=== PATIENT | male | born 1980 | race Caucasian/White ===

== ENCOUNTER 2020-04-11 10:34 | Inpatient (IN) | payer MEDICAID ==
[~2020-04-11] VITALS: Ht 175.3 cm; Wt 107.2 kg
[2020-04-11] MEDS: LORazepam 2 MG TABLET PO PRN (14:00)
[2020-04-11] MEDS: HALOPERIDOL 5 MG TABLET PO PRN (14:00)
[2020-04-11] MEDS ORDERED: INFLUENZA VIRUS VACCINE QVS 2020-21 (6MO+)/PF 60 MCG/0.5 ML SYRINGE IM ONE (14:15)
[2020-04-11 14:31] VITALS: BP 131/81
[2020-04-11 14:32] VITALS: BP 131/81
[2020-04-11 16:22] VITALS: BP 123/76
[2020-04-11] MEDS: ZOLPIDEM TARTRATE 10 MG TABLET PO PRN (20:24)
[2020-04-12 04:05] VITALS: BP 124/72
[2020-04-12] MEDS: LORazepam 2 MG TABLET PO PRN ×2 (07:04→15:51)
[2020-04-12] MEDS: HALOPERIDOL 5 MG TABLET PO PRN ×2 (07:04→15:51)
[2020-04-12 07:24] LABS: BASOPHILS % (AUTO) 0.5 % (0.0-2.0); EOSINOPHILS % (AUTO) 2.4 % (1.0-6.0); HEMATOCRIT 39.7 % (41-53); HEMOGLOBIN 13.3 g/dL (13.5-17.5); LYMPHOCYTES # (AUTO) 0.9 K/uL (1.0-4.8); LYMPHOCYTES % (AUTO) 17.3 % (22.0-44.0); MEAN CORPUSCULAR HEMOGLOBIN 29.7 pg (26.0-34.0); MEAN CORPUSCULAR HGB CONC 33.4 G/dL (31.0-37.0); MEAN CORPUSCULAR VOLUME 89 fL (80-100); MONOCYTES # (AUTO) 0.5 K/uL (0.1-1.0); MONOCYTES % (AUTO) 8.7 % (2.0-9.0); NEUTROPHILS # (AUTO) 3.9 K/uL (1.8-7.7); NEUTROPHILS % (AUTO) 71.1 % (40.0-70.0); PLATELET COUNT (AUTO) 245 K/uL (150-450); RED BLOOD CELL COUNT(AUTO) 4.47 MIL/uL (4.50-5.90); RED CELL DISTRIBUTION WIDTH 14.1 % (11.5-14.5)
[2020-04-12 07:38] LABS: HEMOGLOBIN A1C 5.5 % (3.8-5.6)
[2020-04-12 07:47] LABS: ALANINE AMINOTRANSFERASE 68 U/L (12-78); ALBUMIN 3.4 g/dL (3.4-5.0); ALKALINE PHOSPHATASE 75 U/L (46-116); ANION GAP 8 mmol/L (8-16); ASPARTATE AMINOTRANSFERASE 34 U/L (15-37); BILIRUBIN,TOTAL 0.3 mg/dL (0.1-1.0); CALCIUM, TOTAL 8.8 mg/dL (8.8-10.5); CARBON DIOXIDE 26 mmol/L (22-29); CHLORIDE 105 mmol/L (98-107); CHOL/HDL RATIO 3.5 (4.2-7.3); CHOLESTEROL 154 mg/dL (131-200); CREATININE 0.73 mg/dL (0.60-1.30); FREE T4 (FREE THYROXINE) 1.23 ng/dL (0.76-1.46); GLOMERULAR FILTR. RATE CALC > 60 mL/min (>60); GLUCOSE,RANDOM 89 mg/dL (70-110); HDL CHOLESTEROL 44 mg/dL (40-60); LDL CHOL (CALC.) 90 mg/dL (0-130); POTASSIUM 4.5 mmol/L (3.5-5.1); SODIUM SERUM 139 mmol/L (136-145); TOTAL PROTEIN, SERUM 6.6 g/dL (6.4-8.2); TRIGLYCERIDES 101 mg/dL (15-150); UREA NITROGEN, BLOOD 13 mg/dL (7-18)
[2020-04-12 08:10] VITALS: BP 109/65
[2020-04-12 16:40] VITALS: BP 115/60
[2020-04-12] MEDS: ZOLPIDEM TARTRATE 10 MG TABLET PO PRN (21:32)
[2020-04-13 04:55] VITALS: BP 118/63
[2020-04-13 08:10] VITALS: BP 109/68
[2020-04-13] MEDS: LORazepam 2 MG TABLET PO PRN ×3 (08:31→19:02)
[2020-04-13] MEDS: HALOPERIDOL 5 MG TABLET PO PRN ×3 (08:31→19:02)
[2020-04-14 05:49] VITALS: BP 117/74
[2020-04-14] MEDS: CITALOPRAM HYDROBROMIDE 20 MG TABLET PO SCH (09:08)
[2020-04-14] MEDS: MUPIROCIN CALCIUM 2% 22 GM OINTMENT NASAL SCH ×2 (09:09→17:23)
[2020-04-14] MEDS: HALOPERIDOL 5 MG TABLET PO PRN (13:00)
[2020-04-14] MEDS: LORazepam 2 MG TABLET PO PRN (13:00)
[2020-04-14 16:23] VITALS: BP 104/68
[2020-04-15] MEDS: CITALOPRAM HYDROBROMIDE 20 MG TABLET PO SCH (09:17)
[2020-04-15] MEDS: MUPIROCIN CALCIUM 2% 22 GM OINTMENT NASAL SCH ×2 (09:17→16:45)
[2020-04-15] MEDS: HALOPERIDOL 5 MG TABLET PO PRN ×2 (10:15→15:36)
[2020-04-15] MEDS: LORazepam 2 MG TABLET PO PRN ×2 (10:15→15:36)
[2020-04-15 20:00] VITALS: BP 100/73
[2020-04-16] MEDS: ZOLPIDEM TARTRATE 10 MG TABLET PO PRN ×2 (00:49→22:20)
[2020-04-16 08:10] VITALS: BP 128/76
[2020-04-16] MEDS: CITALOPRAM HYDROBROMIDE 20 MG TABLET PO SCH (08:53)
[2020-04-16] MEDS: MUPIROCIN CALCIUM 2% 22 GM OINTMENT NASAL SCH ×2 (08:53→16:04)
[2020-04-16] MEDS: HALOPERIDOL 5 MG TABLET PO PRN ×3 (09:14→21:46)
[2020-04-16] MEDS: LORazepam 2 MG TABLET PO PRN ×3 (09:14→21:46)
[2020-04-16 16:24] VITALS: BP 103/59
[2020-04-17] MEDS: CITALOPRAM HYDROBROMIDE 20 MG TABLET PO SCH (08:58)
[2020-04-17] MEDS: MUPIROCIN CALCIUM 2% 22 GM OINTMENT NASAL SCH ×2 (09:07→17:14)
[2020-04-17 12:44] VITALS: BP 100/51
[2020-04-17] MEDS: HALOPERIDOL 5 MG TABLET PO PRN (14:00)
[2020-04-17] MEDS: LORazepam 2 MG TABLET PO PRN (14:00)
[2020-04-17 16:31] VITALS: BP 107/60
[2020-04-18 02:00] VITALS: BP 118/65
[2020-04-18 08:33] VITALS: BP 108/60
[2020-04-18] MEDS: CITALOPRAM HYDROBROMIDE 20 MG TABLET PO SCH (09:08)
[2020-04-18] MEDS: LORazepam 2 MG TABLET PO PRN ×2 (09:20→16:05)
[2020-04-18] MEDS: HALOPERIDOL 5 MG TABLET PO PRN ×2 (09:21→16:05)
[2020-04-18] MEDS: MUPIROCIN CALCIUM 2% 22 GM OINTMENT NASAL SCH ×2 (09:32→16:05)
[2020-04-18 16:16] VITALS: BP 102/64
[2020-04-18 20:37] LABS: COVID AG,FIA SOURCE NASOPHARYNGEAL
[2020-04-18] MEDS ORDERED: MAGNESIUM HYDROXIDE SUSPENSION 30 ML UDCUP PO PRN (22:00)
[2020-04-18] MEDS ORDERED: BENZOCAINE/MENTHOL LOZENGE PO PRN (22:00)
[2020-04-18] MEDS ORDERED: LOPERAMIDE HCL 2 MG CAPSULE PO PRN (22:00)
[2020-04-18] MEDS ORDERED: ONDANSETRON HCL 4 MG TABLET PO PRN (22:00)
[2020-04-18] MEDS ORDERED: CloNIDine HCL 0.1 MG TABLET PO PRN (22:00)
[2020-04-18] MEDS ORDERED: BACITRACIN 28 GM OINTMENT TP PRN (22:00)
[2020-04-18] MEDS ORDERED: IBUPROFEN 600 MG TABLET PO PRN (22:00)
[2020-04-18] MEDS ORDERED: MAG HYDROX/AL HYDROX/SIMETH ES 30 ML SUSPENSION UDCUP PO PRN (22:00)
[2020-04-18] MEDS ORDERED: ALBUTEROL SULFATE HFA 90 MCG/PUFF 8 GM INHALER IH PRN (22:00)
[2020-04-18] MEDS ORDERED: PETROLATUM,WHITE 28 GM JELLY TP PRN (22:00)
[2020-04-18] MEDS ORDERED: ACETAMINOPHEN 325 MG TABLET PO PRN (22:00)
[2020-04-19 08:14] VITALS: BP 137/73
[2020-04-19] MEDS: LORazepam 2 MG TABLET PO PRN ×2 (08:33→16:28)
[2020-04-19] MEDS: HALOPERIDOL 5 MG TABLET PO PRN ×2 (08:33→16:28)
[2020-04-19] MEDS: OMEPRAZOLE 20 MG CAPSULE PO SCH (10:00)
[2020-04-19] MEDS: DOCUSATE SODIUM 100 MG CAPSULE PO SCH (10:00)
[2020-04-19] MEDS: MUPIROCIN CALCIUM 2% 22 GM OINTMENT NASAL SCH ×2 (10:00→16:29)
[2020-04-19] MEDS: CITALOPRAM HYDROBROMIDE 20 MG TABLET PO SCH (10:01)
[2020-04-19 16:27] VITALS: BP 162/92
[2020-04-19 17:00] VITALS: BP 140/88
[2020-04-20 04:06] VITALS: BP 136/81
[2020-04-20] MEDS: LORazepam 2 MG TABLET PO PRN ×2 (08:15→14:25)
[2020-04-20] MEDS: CITALOPRAM HYDROBROMIDE 20 MG TABLET PO SCH (08:15)
[2020-04-20] MEDS: DOCUSATE SODIUM 100 MG CAPSULE PO SCH (08:15)
[2020-04-20] MEDS: OMEPRAZOLE 20 MG CAPSULE PO SCH (08:15)
[2020-04-20] MEDS: MUPIROCIN CALCIUM 2% 22 GM OINTMENT NASAL SCH ×2 (08:18→16:09)
[2020-04-20 08:46] VITALS: BP 130/80
[2020-04-20] MEDS: HALOPERIDOL 5 MG TABLET PO PRN (14:24)
[2020-04-20 16:15] VITALS: BP 147/90
[2020-04-21 08:22] VITALS: BP 111/66
[2020-04-21] MEDS: OMEPRAZOLE 20 MG CAPSULE PO SCH (08:42)
[2020-04-21] MEDS: HALOPERIDOL 5 MG TABLET PO PRN (08:42)
[2020-04-21] MEDS: DOCUSATE SODIUM 100 MG CAPSULE PO SCH (08:42)
[2020-04-21] MEDS: CITALOPRAM HYDROBROMIDE 20 MG TABLET PO SCH (08:42)
[2020-04-21] MEDS: LORazepam 2 MG TABLET PO PRN (08:42)
[2020-04-21] MEDS ORDERED: CITA-144 PO (10:17)
[2020-04-21] MEDS ORDERED: OMEP20 PO (10:17)
[2020-04-21] MEDS ORDERED: DOCU-275 PO (10:17)
== END 2020-04-21 11:45 | disposition home or self-care (01) | DRG 750 ==
LOC: B3A 13:05
PROVIDERS: ADMIT Psychiatry & Neurology Psychiatry; ATTEND Psychiatry & Neurology Psychiatry
DX: F25.9 Schizoaffective disorder, unspecified (principal); R45.851 Suicidal ideations; Z59.0 Homelessness; D64.9 Anemia, unspecified; F41.9 Anxiety disorder, unspecified; K59.00 Constipation, unspecified; G47.00 Insomnia, unspecified; F17.200 Nicotine dependence, unspecified, uncomplicated; F19.10 Other psychoactive substance abuse, uncomplicated; Z20.828 Contact with and (suspected) exposure to other viral communicable diseases
CPT/HCPCS: 83036; 84436; 84439; 84443; 87081; 87426

== ENCOUNTER 2020-07-16 08:41 | Inpatient (IN) | payer MEDICAID ==
[~2020-07-16] VITALS: Ht 172.7 cm; Wt 111.1 kg
[~2020-07-16 08:41] MED LIST: CITA-144 PO
[2020-07-16] MEDS ORDERED: ZOLPIDEM TARTRATE 10 MG TABLET PO PRN ×2 (09:15→09:30)
[2020-07-16] MEDS ORDERED: HALOPERIDOL 5 MG TABLET PO PRN (09:15)
[2020-07-16] MEDS ORDERED: LORazepam 2 MG TABLET PO PRN (09:15)
[2020-07-16] MEDS ORDERED: HydrOXYzine PAMOATE 50 MG CAPSULE PO PRN (09:30)
[2020-07-16] MEDS ORDERED: GuaiFENesin/D-METHORPHAN [SUGAR-FREE] 200-20MG/10 ML SYRUP UDCUP PO PRN (09:30)
[2020-07-16] MEDS ORDERED: MAGNESIUM HYDROXIDE SUSPENSION 30 ML UDCUP PO PRN (09:30)
[2020-07-16] MEDS ORDERED: ACETAMINOPHEN 325 MG TABLET PO PRN (09:30)
[2020-07-16] MEDS ORDERED: TUBERCULIN, PURIFIED PROTEIN DERIVATIVE 5 TU/0.1 ML SYRINGE ID ONE (09:30)
[2020-07-16] MEDS ORDERED: LOPERAMIDE HCL 2 MG CAPSULE PO PRN (09:30)
[2020-07-16] MEDS ORDERED: MAG HYDROX/AL HYDROX/SIMETH ES 30 ML SUSPENSION UDCUP PO PRN (09:30)
[2020-07-16] MEDS ORDERED: OLANZapine 5 MG RAPDIS TABLET PO PRN (09:30)
[2020-07-16] MEDS ORDERED: PROMETHAZINE HCL 25 MG TABLET PO PRN (09:30)
[2020-07-16 14:32] VITALS: BP 149/94
[2020-07-16] MEDS: LORazepam 2 MG TABLET PO PRN (15:00)
[2020-07-16] MEDS ORDERED: PALIPERIDONE 1.5 MG ER TABLET PO PRN (16:00)
[2020-07-16] MEDS ORDERED: PALIPERIDONE PALMITATE 234 MG/1.5 ML SYRINGE IM ONE (16:00)
[2020-07-16] MEDS: THIAMINE 100 MG TABLET PO SCH (16:52)
[2020-07-16] MEDS ORDERED: INFLUENZA VIRUS VACCINE QVS 2020-21 (6MO+)/PF 60 MCG/0.5 ML SYRINGE IM ONE (17:15)
[2020-07-16] MEDS ORDERED: CloNIDine HCL 0.1 MG TABLET PO PRN (17:30)
[2020-07-16] MEDS ORDERED: BISACODYL 5 MG EC TABLET PO PRN (17:30)
[2020-07-16] MEDS ORDERED: PALIPERIDONE 3 MG ER TABLET PO SCH (21:00)
[2020-07-16] MEDS ORDERED: OLANZapine 5 MG RAPDIS TABLET PO SCH (21:00)
[2020-07-16] MEDS: MELATONIN 5 MG TABLET PO SCH (21:00)
[2020-07-17 01:44] VITALS: BP 130/65
[2020-07-17] MEDS: OMEGA-3/DHA/EPA/FISH OIL 1,000 MG CAPSULE PO SCH ×2 (08:37→09:00)
[2020-07-17] MEDS: FLUoxetine HCL 20 MG CAPSULE PO SCH ×2 (08:37→09:00)
[2020-07-17] MEDS: NALTREXONE HCL 50 MG TABLET PO SCH ×2 (08:37→09:00)
[2020-07-17] MEDS: MULTIVITAMINS WITH MINERALS, THERAPEUTIC TABLET PO SCH ×2 (08:37→09:00)
[2020-07-17] MEDS: FOLIC ACID 1 MG TABLET PO SCH ×2 (08:37→09:00)
[2020-07-17] MEDS: THIAMINE 100 MG TABLET PO SCH ×3 (08:37→17:43)
[2020-07-17] MEDS ORDERED: QUEtiapine FUMARATE 100 MG TABLET PO PRN (13:45)
[2020-07-17] MEDS: QUEtiapine FUMARATE 25 MG TABLET PO SCH (16:55)
[2020-07-17] MEDS ORDERED: QUEtiapine FUMARATE 100 MG TABLET PO SCH (21:00)
[2020-07-17] MEDS: MELATONIN 5 MG TABLET PO SCH (21:58)
[2020-07-18] MEDS: OMEGA-3/DHA/EPA/FISH OIL 1,000 MG CAPSULE PO SCH (09:36)
[2020-07-18] MEDS: THIAMINE 100 MG TABLET PO SCH ×2 (09:36→16:22)
[2020-07-18] MEDS: NALTREXONE HCL 50 MG TABLET PO SCH (09:36)
[2020-07-18] MEDS: MULTIVITAMINS WITH MINERALS, THERAPEUTIC TABLET PO SCH (09:36)
[2020-07-18] MEDS: FLUoxetine HCL 20 MG CAPSULE PO SCH (09:36)
[2020-07-18] MEDS: FOLIC ACID 1 MG TABLET PO SCH (09:37)
[2020-07-18] MEDS: QUEtiapine FUMARATE 25 MG TABLET PO SCH ×2 (09:39→18:12)
[2020-07-18] MEDS: LORazepam 2 MG TABLET PO PRN (09:43)
[2020-07-18] MEDS ORDERED: QUEtiapine FUMARATE 200 MG TABLET PO SCH (21:00)
[2020-07-18] MEDS: MELATONIN 5 MG TABLET PO SCH (21:43)
[2020-07-19] MEDS: FOLIC ACID 1 MG TABLET PO SCH (08:29)
[2020-07-19] MEDS: FLUoxetine HCL 20 MG CAPSULE PO SCH (08:29)
[2020-07-19] MEDS: OMEGA-3/DHA/EPA/FISH OIL 1,000 MG CAPSULE PO SCH (08:29)
[2020-07-19] MEDS: THIAMINE 100 MG TABLET PO SCH ×2 (08:30→16:31)
[2020-07-19] MEDS: MULTIVITAMINS WITH MINERALS, THERAPEUTIC TABLET PO SCH (08:30)
[2020-07-19] MEDS: QUEtiapine FUMARATE 25 MG TABLET PO SCH ×2 (08:30→16:31)
[2020-07-19] MEDS: NALTREXONE HCL 50 MG TABLET PO SCH (08:30)
[2020-07-19] MEDS: LORazepam 2 MG TABLET PO PRN (08:34)
[2020-07-19] MEDS: MELATONIN 5 MG TABLET PO SCH (20:05)
[2020-07-19] MEDS ORDERED: QUEtiapine FUMARATE 300 MG TABLET PO SCH (21:00)
[2020-07-20] MEDS: OMEGA-3/DHA/EPA/FISH OIL 1,000 MG CAPSULE PO SCH (08:51)
[2020-07-20] MEDS: FOLIC ACID 1 MG TABLET PO SCH (08:51)
[2020-07-20] MEDS: MULTIVITAMINS WITH MINERALS, THERAPEUTIC TABLET PO SCH (08:51)
[2020-07-20] MEDS: THIAMINE 100 MG TABLET PO SCH ×2 (08:51→16:56)
[2020-07-20] MEDS: FLUoxetine HCL 20 MG CAPSULE PO SCH (08:51)
[2020-07-20] MEDS: NALTREXONE HCL 50 MG TABLET PO SCH (08:51)
[2020-07-20] MEDS: QUEtiapine FUMARATE 100 MG TABLET PO SCH ×2 (08:51→16:56)
[2020-07-20] MEDS ORDERED: PALIPERIDONE PALMITATE 156 MG/ML SYRINGE IM ONE (09:00)
[2020-07-20] MEDS: QUEtiapine FUMARATE 25 MG TABLET PO SCH (16:56)
[2020-07-20] MEDS: QUEtiapine FUMARATE 200 MG TABLET PO SCH (21:59)
[2020-07-20] MEDS: MELATONIN 5 MG TABLET PO SCH (21:59)
[2020-07-21] MEDS: FOLIC ACID 1 MG TABLET PO SCH (09:19)
[2020-07-21] MEDS: QUEtiapine FUMARATE 25 MG TABLET PO SCH ×2 (09:19→16:50)
[2020-07-21] MEDS: THIAMINE 100 MG TABLET PO SCH ×2 (09:19→16:50)
[2020-07-21] MEDS: QUEtiapine FUMARATE 100 MG TABLET PO SCH ×2 (09:19→16:49)
[2020-07-21] MEDS: MULTIVITAMINS WITH MINERALS, THERAPEUTIC TABLET PO SCH (09:20)
[2020-07-21] MEDS: NALTREXONE HCL 50 MG TABLET PO SCH (09:20)
[2020-07-21] MEDS: FLUoxetine HCL 20 MG CAPSULE PO SCH (09:20)
[2020-07-21] MEDS: OMEGA-3/DHA/EPA/FISH OIL 1,000 MG CAPSULE PO SCH (09:20)
[2020-07-21] MEDS: MELATONIN 5 MG TABLET PO SCH (20:51)
[2020-07-21] MEDS: QUEtiapine FUMARATE 200 MG TABLET PO SCH (20:51)
[2020-07-22] MEDS: FOLIC ACID 1 MG TABLET PO SCH (09:15)
[2020-07-22] MEDS: FLUoxetine HCL 20 MG CAPSULE PO SCH (09:15)
[2020-07-22] MEDS: NALTREXONE HCL 50 MG TABLET PO SCH (09:15)
[2020-07-22] MEDS: QUEtiapine FUMARATE 25 MG TABLET PO SCH ×2 (09:15→16:46)
[2020-07-22] MEDS: QUEtiapine FUMARATE 100 MG TABLET PO SCH ×2 (09:15→16:46)
[2020-07-22] MEDS: OMEGA-3/DHA/EPA/FISH OIL 1,000 MG CAPSULE PO SCH (09:16)
[2020-07-22] MEDS: THIAMINE 100 MG TABLET PO SCH ×2 (09:16→17:16)
[2020-07-22] MEDS: MULTIVITAMINS WITH MINERALS, THERAPEUTIC TABLET PO SCH (09:16)
[2020-07-22] MEDS: MELATONIN 5 MG TABLET PO SCH (20:52)
[2020-07-22] MEDS: QUEtiapine FUMARATE 200 MG TABLET PO SCH (20:52)
[2020-07-22] MEDS: LORazepam 2 MG TABLET PO PRN (20:52)
[2020-07-23] MEDS: QUEtiapine FUMARATE 25 MG TABLET PO SCH (08:19)
[2020-07-23] MEDS: QUEtiapine FUMARATE 100 MG TABLET PO SCH ×2 (08:19→16:55)
[2020-07-23] MEDS: FLUoxetine HCL 20 MG CAPSULE PO SCH (08:20)
[2020-07-23] MEDS: OMEGA-3/DHA/EPA/FISH OIL 1,000 MG CAPSULE PO SCH (08:20)
[2020-07-23] MEDS: FOLIC ACID 1 MG TABLET PO SCH (08:21)
[2020-07-23] MEDS: MULTIVITAMINS WITH MINERALS, THERAPEUTIC TABLET PO SCH (08:21)
[2020-07-23] MEDS: THIAMINE 100 MG TABLET PO SCH ×2 (08:21→16:55)
[2020-07-23] MEDS: NALTREXONE HCL 50 MG TABLET PO SCH (08:21)
[2020-07-23] MEDS: LORazepam 2 MG TABLET PO PRN (11:57)
[2020-07-23] MEDS ORDERED: HALOPERIDOL LACTATE 5 MG/ML VIAL IM ONE (13:30)
[2020-07-23] MEDS ORDERED: DiphenhydrAMINE HCL 50 MG/ML VIAL IM ONE (13:30)
[2020-07-23] MEDS ORDERED: LORazepam 2 MG/ML VIAL IM ONE (13:30)
[2020-07-23] MEDS: MELATONIN 5 MG TABLET PO SCH (21:49)
[2020-07-23] MEDS: QUEtiapine FUMARATE 200 MG TABLET PO SCH (21:50)
[2020-07-24] MEDS: NALTREXONE HCL 50 MG TABLET PO SCH (09:30)
[2020-07-24] MEDS: FOLIC ACID 1 MG TABLET PO SCH (09:30)
[2020-07-24] MEDS: QUEtiapine FUMARATE 100 MG TABLET PO SCH ×2 (09:30→16:51)
[2020-07-24] MEDS: MULTIVITAMINS WITH MINERALS, THERAPEUTIC TABLET PO SCH (09:30)
[2020-07-24] MEDS: FLUoxetine HCL 20 MG CAPSULE PO SCH (09:30)
[2020-07-24] MEDS: THIAMINE 100 MG TABLET PO SCH ×2 (09:30→16:51)
[2020-07-24] MEDS: OMEGA-3/DHA/EPA/FISH OIL 1,000 MG CAPSULE PO SCH (09:30)
[2020-07-24] MEDS ORDERED: DIVALPROEX SODIUM 500 MG ER TABLET PO SCH (21:00)
[2020-07-24] MEDS: MELATONIN 5 MG TABLET PO SCH (21:01)
[2020-07-24] MEDS: QUEtiapine FUMARATE 200 MG TABLET PO SCH (21:01)
[2020-07-25] MEDS ORDERED: QUET200T29 PO (07:50)
[2020-07-25] MEDS ORDERED: FLUO-191 PO (07:50)
[2020-07-25] MEDS ORDERED: DIVA-80 PO (07:50)
[2020-07-25] MEDS ORDERED: MELA5TAB3 PO (07:50)
[2020-07-25] MEDS ORDERED: QUET100T33 PO (07:50)
[2020-07-25] MEDS ORDERED: OMEG-135 PO (07:50)
[2020-07-25] MEDS ORDERED: NALT50TA PO (07:50)
[2020-07-25] MEDS: MULTIVITAMINS WITH MINERALS, THERAPEUTIC TABLET PO SCH (09:50)
[2020-07-25] MEDS: QUEtiapine FUMARATE 100 MG TABLET PO SCH (09:51)
[2020-07-25] MEDS: FOLIC ACID 1 MG TABLET PO SCH (09:51)
[2020-07-25] MEDS: FLUoxetine HCL 20 MG CAPSULE PO SCH (09:51)
[2020-07-25] MEDS: OMEGA-3/DHA/EPA/FISH OIL 1,000 MG CAPSULE PO SCH (09:51)
[2020-07-25] MEDS: NALTREXONE HCL 50 MG TABLET PO SCH (09:51)
[2020-07-25] MEDS: THIAMINE 100 MG TABLET PO SCH (09:52)
[2020-07-25] MEDS ORDERED: OMEG-136 PO (11:46)
== END 2020-07-25 12:30 | disposition home or self-care (01) | DRG 750 ==
LOC: B3A 13:51
PROVIDERS: ADMIT Psychiatry & Neurology Psychiatry; ATTEND Psychiatry & Neurology Psychiatry
DX: F20.0 Paranoid schizophrenia (principal); Z20.822 Contact with and (suspected) exposure to COVID-19; F12.90 Cannabis use, unspecified, uncomplicated; I10 Essential (primary) hypertension; K59.00 Constipation, unspecified; G47.00 Insomnia, unspecified; F31.9 Bipolar disorder, unspecified; Z79.899 Other long term (current) drug therapy; Z59.0 Homelessness; Z65.3 Problems related to other legal circumstances; Z91.5 Personal history of self-harm; Z59.9 Problem related to housing and economic circumstances, unspecified; Z55.9 Problems related to education and literacy, unspecified; Z91.19 Patient's noncompliance with other medical treatment and regimen; Z87.891 Personal history of nicotine dependence
CPT/HCPCS: 90686; A9575; J1200; J1630; J2060

== ENCOUNTER 2021-10-31 21:54 | Inpatient (IN) | payer MEDICAID ==
[~2021-10-31] VITALS: Ht 172.7 cm; Wt 117.6 kg
[~2021-10-31 21:54] MED LIST changes: -CITA-144 PO; +DIVA-80 PO; +FLUO-177 PO; +MELA5TAB40 PO; +NALT50TA PO; +OMEG-108 PO; +QUET100T34 PO; +QUET200T30 PO
[2021-10-31] MEDS ORDERED: LORazepam 2 MG TABLET PO ONE (23:30)
[2021-10-31] MEDS ORDERED: HALOPERIDOL 5 MG TABLET PO ONE (23:30)
[2021-10-31 23:44] LABS: COVID AG,FIA SOURCE NASOPHARYNGEAL
[2021-11-01 00:47] LABS: BASOPHILS % (AUTO) 1.1 % (0.0-2.0); EOSINOPHILS % (AUTO) 0.2 % (1.0-6.0); HEMATOCRIT 35.7 % (41-53); HEMOGLOBIN 12.1 g/dL (13.5-17.5); LYMPHOCYTES # (AUTO) 1.4 K/uL (1.0-4.8); LYMPHOCYTES % (AUTO) 9.5 % (22.0-44.0); MEAN CORPUSCULAR HEMOGLOBIN 29.9 pg (26.0-34.0); MEAN CORPUSCULAR VOLUME 88 fL (80-100); MONOCYTES # (AUTO) 1.6 K/uL (0.1-1.0); MONOCYTES % (AUTO) 11.1 % (2.0-9.0); NEUTROPHILS # (AUTO) 11.4 K/uL (1.8-7.7); NEUTROPHILS % (AUTO) 78.1 % (40.0-70.0); PLATELET COUNT (AUTO) 265 K/uL (150-450); RED BLOOD CELL COUNT(AUTO) 4.07 MIL/uL (4.50-5.90)
[2021-11-01 01:02] LABS: ANION GAP 14 mmol/L (8-16); CALCIUM, TOTAL 8.8 mg/dL (8.8-10.5); CARBON DIOXIDE 21 mmol/L (22-29); CHLORIDE 100 mmol/L (98-107); CREATININE 2.06 mg/dL (0.60-1.30); GLUCOSE,RANDOM 96 mg/dL (70-110); POTASSIUM 3.7 mmol/L (3.5-5.1); SODIUM SERUM 135 mmol/L (136-145); UREA NITROGEN, BLOOD 35 mg/dL (7-18)
[2021-11-01 01:08] LABS: ALANINE AMINOTRANSFERASE 86 U/L (12-78); ALBUMIN 3.8 g/dL (3.4-5.0); ALKALINE PHOSPHATASE 91 U/L (46-116); ASPARTATE AMINOTRANSFERASE 251 U/L (15-37); BILIRUBIN,TOTAL 1.3 mg/dL (0.1-1.0)
[2021-11-01 01:09] LABS: GLOMERULAR FILTR. RATE CALC 36 mL/min (>60)
[2021-11-01] MEDS ORDERED: ZOLPIDEM TARTRATE 10 MG TABLET PO PRN (01:15)
[2021-11-01] MEDS ORDERED: LORazepam 2 MG TABLET PO PRN (01:15)
[2021-11-01] MEDS ORDERED: HALOPERIDOL 5 MG TABLET PO PRN (01:15)
[2021-11-01] MEDS ORDERED: ASPIRIN 81 MG CHEWABLE TABLET PO ONE (01:15)
[2021-11-01] MEDS ORDERED: SODIUM CHLORIDE 0.9% 1,000 ML IV ONE ×3 (01:30→04:00)
[2021-11-01 02:47] LABS: CREATINE KINASE, TOTAL ONLY 19726 U/L (39-308)
[2021-11-01] MEDS ORDERED: ACETAMINOPHEN 325 MG TABLET PO PRN ×2 (04:30→09:00)
[2021-11-01] MEDS ORDERED: ONDANSETRON HCL 4 MG/2 ML VIAL IVP PRN ×2 (04:30→09:00)
[2021-11-01] MEDS ORDERED: 0.9% SODIUM CHLORIDE 10 ML SYRINGE IVP PRN (04:30)
[2021-11-01 06:36] VITALS: BP 113/79
[2021-11-01] MEDS ORDERED: MORPHINE SULFATE 2 MG/ML SYRINGE IVP PRN (09:00)
[2021-11-01] MEDS ORDERED: BISACODYL 10 MG RECTAL RECTAL SUPPOSITORY PR PRN (09:00)
[2021-11-01] MEDS: SODIUM CHLORIDE 0.9% 1,000 ML IV SCH ×2 (09:00→22:39)
[2021-11-01] MEDS ORDERED: ZOLPIDEM TARTRATE 5 MG TABLET PO PRN (09:00)
[2021-11-01] MEDS ORDERED: MAGNESIUM HYDROXIDE SUSPENSION 30 ML UDCUP PO PRN (09:00)
[2021-11-01] MEDS: DOCUSATE SODIUM 100 MG CAPSULE PO SCH ×2 (10:03→20:28)
[2021-11-01] MEDS: HYDROCODONE/ACETAMINOPHEN 5-325 MG TABLET PO PRN (10:03)
[2021-11-01] MEDS: PANTOPRAZOLE SODIUM 40 MG DR TABLET PO SCH (10:03)
[2021-11-01] MEDS ORDERED: *CLINICAL-LEVOFLOXACIN IVPB DOSING CLINICAL ONE (12:00)
[2021-11-01] MEDS: QUEtiapine FUMARATE 100 MG TABLET PO SCH (17:29)
[2021-11-01] MEDS: FLUoxetine HCL 20 MG CAPSULE PO SCH (17:29)
[2021-11-01] MEDS: HEPARIN SODIUM,PORCINE 5,000 UNITS/ML VIAL SQ SCH (17:29)
[2021-11-01] MEDS: BACITRACIN 28 GM OINTMENT TP SCH (17:29)
[2021-11-01] MEDS: LEVOFLOXACIN 750 MG/D5% WATER 150 ML IV SCH (17:30)
[2021-11-01 17:33] VITALS: BP 140/67
[2021-11-01] MEDS: DIVALPROEX SODIUM 500 MG ER TABLET PO SCH (20:29)
[2021-11-01] MEDS: QUEtiapine FUMARATE 200 MG TABLET PO SCH (20:29)
[2021-11-02] MEDS: HEPARIN SODIUM,PORCINE 5,000 UNITS/ML VIAL SQ SCH ×3 (08:00→16:00)
[2021-11-02 08:06] LABS: HEPATITIS C AB (EIA) 0.1 s/co ratio (0.0-0.9)
[2021-11-02] MEDS: PANTOPRAZOLE SODIUM 40 MG DR TABLET PO SCH (09:00)
[2021-11-02] MEDS: BACITRACIN 28 GM OINTMENT TP SCH (09:00)
[2021-11-02] MEDS: FLUoxetine HCL 20 MG CAPSULE PO SCH (09:00)
[2021-11-02] MEDS: DOCUSATE SODIUM 100 MG CAPSULE PO SCH ×2 (09:00→20:55)
[2021-11-02] MEDS: QUEtiapine FUMARATE 100 MG TABLET PO SCH ×2 (09:12→17:07)
[2021-11-02] MEDS: SODIUM CHLORIDE 0.9% 1,000 ML IV SCH (11:40)
[2021-11-02] MEDS: LEVOFLOXACIN 750 MG/D5% WATER 150 ML IV SCH (12:00)
[2021-11-02 19:45] VITALS: BP 110/63
[2021-11-02] MEDS: DIVALPROEX SODIUM 500 MG ER TABLET PO SCH (20:55)
[2021-11-02] MEDS: QUEtiapine FUMARATE 200 MG TABLET PO SCH (20:56)
[2021-11-03] MEDS: HEPARIN SODIUM,PORCINE 5,000 UNITS/ML VIAL SQ SCH ×5 (00:08→23:36)
[2021-11-03] MEDS: SODIUM CHLORIDE 0.9% 1,000 ML IV SCH ×2 (00:17→14:20)
[2021-11-03] MEDS: FLUoxetine HCL 20 MG CAPSULE PO SCH (09:00)
[2021-11-03] MEDS: DOCUSATE SODIUM 100 MG CAPSULE PO SCH ×2 (09:00→20:45)
[2021-11-03] MEDS: BACITRACIN 28 GM OINTMENT TP SCH (09:00)
[2021-11-03] MEDS: PANTOPRAZOLE SODIUM 40 MG DR TABLET PO SCH (09:00)
[2021-11-03] MEDS: QUEtiapine FUMARATE 100 MG TABLET PO SCH ×2 (09:01→17:38)
[2021-11-03] MEDS: LEVOFLOXACIN 750 MG/D5% WATER 150 ML IV SCH (12:00)
[2021-11-03 19:10] VITALS: BP 120/77
[2021-11-03] MEDS: QUEtiapine FUMARATE 200 MG TABLET PO SCH (20:46)
[2021-11-03] MEDS: DIVALPROEX SODIUM 500 MG ER TABLET PO SCH (20:46)
[2021-11-04] MEDS: SODIUM CHLORIDE 0.9% 1,000 ML IV SCH ×2 (03:40→16:22)
[2021-11-04 05:42] VITALS: BP 106/63
[2021-11-04] MEDS: HEPARIN SODIUM,PORCINE 5,000 UNITS/ML VIAL SQ SCH ×2 (08:00→15:41)
[2021-11-04] MEDS: DOCUSATE SODIUM 100 MG CAPSULE PO SCH ×2 (08:45→20:49)
[2021-11-04 08:47] VITALS: BP 123/82
[2021-11-04] MEDS: FLUoxetine HCL 20 MG CAPSULE PO SCH (08:49)
[2021-11-04] MEDS: BACITRACIN 28 GM OINTMENT TP SCH (08:49)
[2021-11-04] MEDS: PANTOPRAZOLE SODIUM 40 MG DR TABLET PO SCH (08:50)
[2021-11-04] MEDS: QUEtiapine FUMARATE 100 MG TABLET PO SCH ×2 (08:51→16:21)
[2021-11-04 11:26] LABS: BASOPHILS % (AUTO) 0.7 % (0.0-2.0); EOSINOPHILS % (AUTO) 1.4 % (1.0-6.0); HEMATOCRIT 41.1 % (41-53); HEMOGLOBIN 13.8 g/dL (13.5-17.5); LYMPHOCYTES # (AUTO) 0.8 K/uL (1.0-4.8); LYMPHOCYTES % (AUTO) 12.2 % (22.0-44.0); MEAN CORPUSCULAR HEMOGLOBIN 29.8 pg (26.0-34.0); MEAN CORPUSCULAR HGB CONC 33.5 G/dL (31.0-37.0); MEAN CORPUSCULAR VOLUME 89 fL (80-100); MONOCYTES # (AUTO) 0.4 K/uL (0.1-1.0); MONOCYTES % (AUTO) 6.1 % (2.0-9.0); NEUTROPHILS # (AUTO) 5.4 K/uL (1.8-7.7); NEUTROPHILS % (AUTO) 79.6 % (40.0-70.0); PLATELET COUNT (AUTO) 275 K/uL (150-450); RED BLOOD CELL COUNT(AUTO) 4.62 MIL/uL (4.50-5.90)
[2021-11-04 11:52] LABS: ANION GAP 9 mmol/L (8-16); CALCIUM, TOTAL 9.4 mg/dL (8.8-10.5); CARBON DIOXIDE 27 mmol/L (22-29); CHLORIDE 102 mmol/L (98-107); CREATINE KINASE, TOTAL ONLY 679 U/L (39-308); CREATININE 0.74 mg/dL (0.60-1.30); GLUCOSE,RANDOM 110 mg/dL (70-110); POTASSIUM 4.7 mmol/L (3.5-5.1); SODIUM SERUM 138 mmol/L (136-145); UREA NITROGEN, BLOOD 15 mg/dL (7-18)
[2021-11-04 11:53] LABS: GLOMERULAR FILTR. RATE CALC > 60 mL/min (>60)
[2021-11-04] MEDS: LEVOFLOXACIN 750 MG/D5% WATER 150 ML IV SCH (12:08)
[2021-11-04 15:51] LABS: COVID AG,FIA SOURCE NASAL SWAB
[2021-11-04] MEDS: QUEtiapine FUMARATE 200 MG TABLET PO SCH (20:49)
[2021-11-04] MEDS: DIVALPROEX SODIUM 500 MG ER TABLET PO SCH (20:50)
[2021-11-04] MEDS: HYDROCODONE/ACETAMINOPHEN 5-325 MG TABLET PO PRN (20:56)
== END 2021-11-04 23:30 | DRG 52 ==
LOC: EMS 21:55 → 5S 11-01 04:43 → 6S 11-03 18:55
PROVIDERS: ADMIT Internal Medicine; ATTEND Internal Medicine
DX: G92.9 Unspecified toxic encephalopathy (principal); N17.0 Acute kidney failure with tubular necrosis; R65.11 Systemic inflammatory response syndrome (SIRS) of non-infectious origin with acute organ dysfunction; M62.82 Rhabdomyolysis; D63.8 Anemia in other chronic diseases classified elsewhere; E66.01 Morbid (severe) obesity due to excess calories; F15.90 Other stimulant use, unspecified, uncomplicated; F25.0 Schizoaffective disorder, bipolar type; I10 Essential (primary) hypertension; L03.113 Cellulitis of right upper limb; L03.114 Cellulitis of left upper limb; Z20.822 Contact with and (suspected) exposure to COVID-19; R45.851 Suicidal ideations; Z59.00 Homelessness unspecified; Z91.51 Personal history of suicidal behavior; Z68.39 Body mass index [BMI] 39.0-39.9, adult
CPT/HCPCS: 70450; 80048; 80053; 80074; 82550; 84484; 85025; 93005; 99291; G0480; J1644; J1956; J7030

== ENCOUNTER 2021-11-04 14:33 | Inpatient (IN) | payer MEDICAID ==
[~2021-11-04] VITALS: Ht 172.7 cm; Wt 114.9 kg
[2021-11-04] MEDS ORDERED: DIVALPROEX SODIUM 500 MG ER TABLET PO SCH (21:00)
[2021-11-05] MEDS: QUEtiapine FUMARATE 200 MG TABLET PO SCH ×2 (01:23→20:51)
[2021-11-05 01:27] VITALS: BP 136/87
[2021-11-05] MEDS ORDERED: NICOTINE 14 MG/24 HOUR PATCH TD PRN (06:15)
[2021-11-05] MEDS ORDERED: MAGNESIUM HYDROXIDE SUSPENSION 30 ML UDCUP PO PRN (06:15)
[2021-11-05] MEDS ORDERED: GuaiFENesin/D-METHORPHAN [SUGAR-FREE] 200-20MG/10 ML SYRUP UDCUP PO PRN (06:15)
[2021-11-05] MEDS ORDERED: ACETAMINOPHEN 325 MG TABLET PO PRN (06:15)
[2021-11-05] MEDS ORDERED: MAG HYDROX/AL HYDROX/SIMETH ES 30 ML SUSPENSION UDCUP PO PRN (06:15)
[2021-11-05] MEDS ORDERED: IBUPROFEN 400 MG TABLET PO PRN (06:15)
[2021-11-05] MEDS ORDERED: ALBUTEROL SULFATE HFA 90 MCG/PUFF 8 GM INHALER IH PRN (06:15)
[2021-11-05] MEDS ORDERED: CloNIDine HCL 0.1 MG TABLET PO PRN (06:15)
[2021-11-05] MEDS ORDERED: DOCUSATE SODIUM 100 MG CAPSULE PO PRN (06:15)
[2021-11-05] MEDS ORDERED: LOPERAMIDE HCL 2 MG CAPSULE PO PRN (06:15)
[2021-11-05] MEDS ORDERED: PETROLATUM,WHITE 28 GM JELLY TP PRN (06:15)
[2021-11-05] MEDS ORDERED: ONDANSETRON HCL 4 MG TABLET PO PRN (06:15)
[2021-11-05 08:10] VITALS: BP 122/95
[2021-11-05] MEDS: LORazepam 2 MG TABLET PO PRN (08:47)
[2021-11-05] MEDS: QUEtiapine FUMARATE 100 MG TABLET PO SCH ×2 (08:47→16:54)
[2021-11-05] MEDS: FLUoxetine HCL 20 MG CAPSULE PO SCH (08:47)
[2021-11-05] MEDS: CIPROFLOXACIN HCL 500 MG TABLET PO SCH (16:54)
[2021-11-05] MEDS: DIVALPROEX SODIUM 500 MG ER TABLET PO SCH (20:51)
[2021-11-06 08:08] VITALS: BP 108/61
[2021-11-06] MEDS: CIPROFLOXACIN HCL 500 MG TABLET PO SCH ×2 (08:09→16:44)
[2021-11-06] MEDS: FLUoxetine HCL 20 MG CAPSULE PO SCH (08:09)
[2021-11-06] MEDS: LORazepam 2 MG TABLET PO PRN (08:09)
[2021-11-06] MEDS: QUEtiapine FUMARATE 100 MG TABLET PO SCH ×2 (08:10→16:44)
[2021-11-06] MEDS: DIVALPROEX SODIUM 500 MG ER TABLET PO SCH (20:25)
[2021-11-06] MEDS: QUEtiapine FUMARATE 200 MG TABLET PO SCH (20:25)
[2021-11-07] MEDS: CIPROFLOXACIN HCL 500 MG TABLET PO SCH ×2 (08:03→16:08)
[2021-11-07] MEDS: LORazepam 2 MG TABLET PO PRN (08:03)
[2021-11-07] MEDS: FLUoxetine HCL 20 MG CAPSULE PO SCH (08:04)
[2021-11-07] MEDS: QUEtiapine FUMARATE 100 MG TABLET PO SCH ×2 (08:04→16:08)
[2021-11-07 08:18] VITALS: BP 107/54
[2021-11-07 16:33] VITALS: BP 131/64
[2021-11-07] MEDS: DIVALPROEX SODIUM 500 MG ER TABLET PO SCH (20:02)
[2021-11-07] MEDS: QUEtiapine FUMARATE 200 MG TABLET PO SCH (20:02)
[2021-11-07] MEDS: MUPIROCIN CALCIUM 2% 22 GM OINTMENT NASAL SCH (21:00)
[2021-11-08 06:06] VITALS: BP 117/62
[2021-11-08 07:21] LABS: APPEARANCE,URINE CLEAR (CLEAR); BILIRUBIN,URINE NEGATIVE (NEGATIVE); GLUCOSE, URINE (UA) 300-500 mg/dL (NEGATIVE); KETONES,URINE TRACE mg/dL (NEGATIVE); LEUKOCYTE ESTERASE ,URINE NEGATIVE (NEGATIVE); NITRATE,URINE NEGATIVE (NEGATIVE); OCCULT BLOOD,URINE NEGATIVE (NEGATIVE); PH,URINE 6.5 (5.0-8.0); PROTEIN,URINE TRACE mg/dL (NEGATIVE); UROBILINOGEN,URINE <=1.0 mg/dL (<=1.0)
[2021-11-08 07:43] LABS: BACTERIA,URINE None Seen /HPF (None Seen); RBC,URINE None Seen /HPF (0-2); SQUAMOUS EPITHELIAL CELL,UR Few /LPF (None Seen); WBC,URINE None Seen /HPF (0-5)
[2021-11-08] MEDS: MUPIROCIN CALCIUM 2% 22 GM OINTMENT NASAL SCH ×2 (09:00→16:04)
[2021-11-08] MEDS: FLUoxetine HCL 20 MG CAPSULE PO SCH (09:12)
[2021-11-08] MEDS: CIPROFLOXACIN HCL 500 MG TABLET PO SCH ×2 (09:12→16:04)
[2021-11-08] MEDS: LORazepam 2 MG TABLET PO PRN ×2 (09:12→16:03)
[2021-11-08] MEDS: QUEtiapine FUMARATE 100 MG TABLET PO SCH ×2 (09:12→16:03)
[2021-11-08 16:07] VITALS: BP 120/64
[2021-11-08 20:02] VITALS: BP 120/64
[2021-11-08] MEDS: QUEtiapine FUMARATE 200 MG TABLET PO SCH (20:20)
[2021-11-08] MEDS: DIVALPROEX SODIUM 500 MG ER TABLET PO SCH (20:20)
[2021-11-09] MEDS: CIPROFLOXACIN HCL 500 MG TABLET PO SCH ×2 (08:16→16:05)
[2021-11-09] MEDS: QUEtiapine FUMARATE 100 MG TABLET PO SCH ×2 (08:16→16:05)
[2021-11-09] MEDS: FLUoxetine HCL 20 MG CAPSULE PO SCH (08:16)
[2021-11-09] MEDS: LORazepam 2 MG TABLET PO PRN ×2 (08:19→16:05)
[2021-11-09] MEDS: MUPIROCIN CALCIUM 2% 22 GM OINTMENT NASAL SCH ×2 (09:00→16:06)
[2021-11-09] MEDS: QUEtiapine FUMARATE 200 MG TABLET PO SCH (20:12)
[2021-11-09] MEDS: DIVALPROEX SODIUM 500 MG ER TABLET PO SCH (20:12)
[2021-11-09 20:24] VITALS: BP 114/65
[2021-11-10] MEDS: QUEtiapine FUMARATE 100 MG TABLET PO SCH ×2 (08:22→16:38)
[2021-11-10] MEDS: CIPROFLOXACIN HCL 500 MG TABLET PO SCH (08:22)
[2021-11-10] MEDS: FLUoxetine HCL 20 MG CAPSULE PO SCH (08:22)
[2021-11-10] MEDS: MUPIROCIN CALCIUM 2% 22 GM OINTMENT NASAL SCH ×2 (08:23→16:38)
[2021-11-10 09:15] VITALS: BP 112/68
[2021-11-10] MEDS: DIVALPROEX SODIUM 500 MG ER TABLET PO SCH (21:49)
[2021-11-10] MEDS: QUEtiapine FUMARATE 200 MG TABLET PO SCH (21:49)
[2021-11-11] MEDS: QUEtiapine FUMARATE 100 MG TABLET PO SCH ×2 (08:54→17:00)
[2021-11-11] MEDS: FLUoxetine HCL 20 MG CAPSULE PO SCH (08:54)
[2021-11-11] MEDS: MUPIROCIN CALCIUM 2% 22 GM OINTMENT NASAL SCH ×2 (09:00→17:00)
[2021-11-11] MEDS: LORazepam 2 MG TABLET PO PRN (17:00)
[2021-11-11 20:04] VITALS: BP 128/82
[2021-11-11] MEDS: DIVALPROEX SODIUM 500 MG ER TABLET PO SCH (20:53)
[2021-11-11] MEDS: QUEtiapine FUMARATE 200 MG TABLET PO SCH (20:53)
[2021-11-12] MEDS: FLUoxetine HCL 20 MG CAPSULE PO SCH (08:41)
[2021-11-12] MEDS: QUEtiapine FUMARATE 100 MG TABLET PO SCH ×2 (08:41→16:53)
[2021-11-12] MEDS: MUPIROCIN CALCIUM 2% 22 GM OINTMENT NASAL SCH (08:41)
[2021-11-12 20:06] VITALS: BP 122/68
[2021-11-12] MEDS: DIVALPROEX SODIUM 500 MG ER TABLET PO SCH (21:02)
[2021-11-12] MEDS: QUEtiapine FUMARATE 200 MG TABLET PO SCH (21:02)
[2021-11-12] MEDS: ZOLPIDEM TARTRATE 10 MG TABLET PO PRN (21:02)
[2021-11-13] MEDS: QUEtiapine FUMARATE 100 MG TABLET PO SCH ×2 (09:04→16:46)
[2021-11-13] MEDS: FLUoxetine HCL 20 MG CAPSULE PO SCH (09:04)
[2021-11-13] MEDS: LORazepam 2 MG TABLET PO PRN (19:13)
[2021-11-13] MEDS: ZOLPIDEM TARTRATE 10 MG TABLET PO PRN (20:11)
[2021-11-13] MEDS: QUEtiapine FUMARATE 200 MG TABLET PO SCH (20:11)
[2021-11-13] MEDS: DIVALPROEX SODIUM 500 MG ER TABLET PO SCH (20:11)
[2021-11-14] MEDS: FLUoxetine HCL 20 MG CAPSULE PO SCH (08:00)
[2021-11-14] MEDS: QUEtiapine FUMARATE 100 MG TABLET PO SCH ×2 (08:01→17:02)
[2021-11-14] MEDS: LORazepam 2 MG TABLET PO PRN ×2 (17:02→21:37)
[2021-11-14] MEDS: QUEtiapine FUMARATE 200 MG TABLET PO SCH (20:03)
[2021-11-14] MEDS: DIVALPROEX SODIUM 500 MG ER TABLET PO SCH (20:04)
[2021-11-14] MEDS: ZOLPIDEM TARTRATE 10 MG TABLET PO PRN (20:04)
[2021-11-14 20:07] VITALS: BP 140/68
[2021-11-14] MEDS: QUEtiapine FUMARATE 100 MG TABLET PO PRN (21:33)
[2021-11-15] MEDS: LORazepam 2 MG TABLET PO PRN ×3 (08:12→19:39)
[2021-11-15] MEDS: QUEtiapine FUMARATE 100 MG TABLET PO SCH ×2 (08:12→16:48)
[2021-11-15] MEDS: FLUoxetine HCL 20 MG CAPSULE PO SCH (08:12)
[2021-11-15 08:26] LABS: GLUCOMETER DEV NAME(LOC) POC.BV
[2021-11-15] MEDS: QUEtiapine FUMARATE 100 MG TABLET PO PRN (10:23)
[2021-11-15 15:54] VITALS: BP 138/70
[2021-11-15] MEDS: ZOLPIDEM TARTRATE 10 MG TABLET PO PRN (20:21)
[2021-11-15] MEDS: QUEtiapine FUMARATE 200 MG TABLET PO SCH (20:21)
[2021-11-15] MEDS: DIVALPROEX SODIUM 500 MG ER TABLET PO SCH (20:21)
[2021-11-16] MEDS: QUEtiapine FUMARATE 100 MG TABLET PO PRN (03:49)
[2021-11-16] MEDS: FLUoxetine HCL 20 MG CAPSULE PO SCH (09:52)
[2021-11-16] MEDS: QUEtiapine FUMARATE 100 MG TABLET PO SCH ×2 (09:52→16:48)
[2021-11-16] MEDS: LORazepam 2 MG TABLET PO PRN (16:48)
[2021-11-16 20:02] VITALS: BP 124/68
[2021-11-16] MEDS: QUEtiapine FUMARATE 200 MG TABLET PO SCH (20:27)
[2021-11-16] MEDS: DIVALPROEX SODIUM 500 MG ER TABLET PO SCH (20:27)
[2021-11-16] MEDS: ZOLPIDEM TARTRATE 10 MG TABLET PO PRN (20:28)
[2021-11-17] MEDS: QUEtiapine FUMARATE 100 MG TABLET PO SCH ×2 (08:36→16:53)
[2021-11-17] MEDS: FLUoxetine HCL 20 MG CAPSULE PO SCH (08:36)
[2021-11-17 09:28] VITALS: BP 134/72
[2021-11-17] MEDS: LORazepam 2 MG TABLET PO PRN ×2 (16:53→21:15)
[2021-11-17 20:02] VITALS: BP 122/64
[2021-11-17] MEDS: DIVALPROEX SODIUM 500 MG ER TABLET PO SCH (21:15)
[2021-11-17] MEDS: QUEtiapine FUMARATE 200 MG TABLET PO SCH (21:15)
[2021-11-17] MEDS: ZOLPIDEM TARTRATE 10 MG TABLET PO PRN (21:15)
[2021-11-18] MEDS: FLUoxetine HCL 20 MG CAPSULE PO SCH (09:13)
[2021-11-18] MEDS: QUEtiapine FUMARATE 100 MG TABLET PO SCH ×2 (09:13→16:05)
[2021-11-18] MEDS: LORazepam 2 MG TABLET PO PRN (09:13)
[2021-11-18] MEDS: DIVALPROEX SODIUM 500 MG ER TABLET PO SCH (20:10)
[2021-11-18] MEDS: ZOLPIDEM TARTRATE 10 MG TABLET PO PRN (20:10)
[2021-11-18] MEDS: QUEtiapine FUMARATE 200 MG TABLET PO SCH (20:10)
[2021-11-19 08:11] VITALS: BP 124/70
[2021-11-19] MEDS: FLUoxetine HCL 20 MG CAPSULE PO SCH (08:26)
[2021-11-19] MEDS: QUEtiapine FUMARATE 100 MG TABLET PO SCH ×2 (08:28→16:32)
[2021-11-19] MEDS: LORazepam 2 MG TABLET PO PRN ×2 (10:45→20:35)
[2021-11-19] MEDS: QUEtiapine FUMARATE 200 MG TABLET PO SCH (20:34)
[2021-11-19] MEDS: DIVALPROEX SODIUM 500 MG ER TABLET PO SCH (20:34)
[2021-11-19] MEDS: ZOLPIDEM TARTRATE 10 MG TABLET PO PRN (20:35)
[2021-11-19 20:49] VITALS: BP 107/69
[2021-11-20] MEDS: FLUoxetine HCL 20 MG CAPSULE PO SCH (08:00)
[2021-11-20] MEDS: QUEtiapine FUMARATE 100 MG TABLET PO SCH ×3 (08:00→17:57)
[2021-11-20] MEDS: LORazepam 2 MG TABLET PO PRN ×2 (09:05→19:33)
[2021-11-20 20:24] VITALS: BP 118/73
[2021-11-20] MEDS: QUEtiapine FUMARATE 200 MG TABLET PO SCH (20:41)
[2021-11-20] MEDS: DIVALPROEX SODIUM 500 MG ER TABLET PO SCH (20:42)
[2021-11-20] MEDS: ZOLPIDEM TARTRATE 10 MG TABLET PO PRN (20:42)
[2021-11-21] MEDS: QUEtiapine FUMARATE 100 MG TABLET PO SCH ×2 (08:02→17:02)
[2021-11-21] MEDS: FLUoxetine HCL 20 MG CAPSULE PO SCH (08:02)
[2021-11-21] MEDS: LORazepam 2 MG TABLET PO PRN ×2 (08:02→20:39)
[2021-11-21 20:07] VITALS: BP 118/68
[2021-11-21] MEDS: QUEtiapine FUMARATE 200 MG TABLET PO SCH (20:39)
[2021-11-21] MEDS: DIVALPROEX SODIUM 500 MG ER TABLET PO SCH (20:39)
[2021-11-21] MEDS: ZOLPIDEM TARTRATE 10 MG TABLET PO PRN (20:39)
[2021-11-22] MEDS: FLUoxetine HCL 20 MG CAPSULE PO SCH (08:01)
[2021-11-22] MEDS: LORazepam 2 MG TABLET PO PRN ×2 (08:02→20:41)
[2021-11-22] MEDS: QUEtiapine FUMARATE 100 MG TABLET PO SCH ×2 (08:02→17:00)
[2021-11-22 20:04] VITALS: BP 134/82
[2021-11-22] MEDS: ZOLPIDEM TARTRATE 10 MG TABLET PO PRN (20:41)
[2021-11-22] MEDS: DIVALPROEX SODIUM 500 MG ER TABLET PO SCH (20:41)
[2021-11-22] MEDS: QUEtiapine FUMARATE 200 MG TABLET PO SCH (20:41)
[2021-11-23] MEDS: QUEtiapine FUMARATE 100 MG TABLET PO SCH ×2 (08:17→16:03)
[2021-11-23] MEDS: FLUoxetine HCL 20 MG CAPSULE PO SCH (08:17)
[2021-11-23 17:26] LABS: GLUCOMETER DEV NAME(LOC) POC.BV
[2021-11-23] MEDS: DIVALPROEX SODIUM 500 MG ER TABLET PO SCH (20:17)
[2021-11-23] MEDS: ZOLPIDEM TARTRATE 10 MG TABLET PO PRN (20:17)
[2021-11-23] MEDS: QUEtiapine FUMARATE 200 MG TABLET PO SCH (20:17)
[2021-11-23 20:21] VITALS: BP 108/69
[2021-11-24] MEDS: QUEtiapine FUMARATE 100 MG TABLET PO SCH ×2 (08:17→16:21)
[2021-11-24] MEDS: FLUoxetine HCL 20 MG CAPSULE PO SCH (08:17)
[2021-11-24] MEDS: DIVALPROEX SODIUM 500 MG ER TABLET PO SCH (20:26)
[2021-11-24] MEDS: QUEtiapine FUMARATE 200 MG TABLET PO SCH (20:26)
[2021-11-24] MEDS: ZOLPIDEM TARTRATE 10 MG TABLET PO PRN (20:27)
[2021-11-25] MEDS: QUEtiapine FUMARATE 100 MG TABLET PO SCH ×2 (08:20→16:30)
[2021-11-25] MEDS: FLUoxetine HCL 20 MG CAPSULE PO SCH (08:20)
[2021-11-25] MEDS: LORazepam 2 MG TABLET PO PRN (18:40)
[2021-11-25] MEDS: ZOLPIDEM TARTRATE 10 MG TABLET PO PRN (20:03)
[2021-11-25] MEDS: QUEtiapine FUMARATE 200 MG TABLET PO SCH (20:03)
[2021-11-25] MEDS: DIVALPROEX SODIUM 500 MG ER TABLET PO SCH (20:03)
[2021-11-26] MEDS: QUEtiapine FUMARATE 100 MG TABLET PO SCH ×2 (08:00→16:48)
[2021-11-26] MEDS: FLUoxetine HCL 20 MG CAPSULE PO SCH (08:00)
[2021-11-26 08:03] VITALS: BP 122/70
[2021-11-26] MEDS: LORazepam 2 MG TABLET PO PRN ×2 (12:59→17:50)
[2021-11-26 20:03] VITALS: BP 151/88
[2021-11-26] MEDS: QUEtiapine FUMARATE 200 MG TABLET PO SCH (20:32)
[2021-11-26] MEDS: DIVALPROEX SODIUM 500 MG ER TABLET PO SCH (20:32)
[2021-11-26] MEDS: ZOLPIDEM TARTRATE 10 MG TABLET PO PRN (20:32)
[2021-11-27] MEDS: FLUoxetine HCL 20 MG CAPSULE PO SCH (08:10)
[2021-11-27] MEDS: LORazepam 2 MG TABLET PO PRN ×2 (08:10→12:34)
[2021-11-27] MEDS: QUEtiapine FUMARATE 100 MG TABLET PO SCH ×2 (08:10→16:36)
[2021-11-27] MEDS: QUEtiapine FUMARATE 100 MG TABLET PO PRN (12:33)
[2021-11-27] MEDS ORDERED: LORazepam 2 MG TABLET PO PRN (13:35)
[2021-11-27 20:01] VITALS: BP 128/70
[2021-11-27] MEDS: ZOLPIDEM TARTRATE 10 MG TABLET PO PRN (20:12)
[2021-11-27] MEDS: QUEtiapine FUMARATE 200 MG TABLET PO SCH (20:12)
[2021-11-27] MEDS: DIVALPROEX SODIUM 500 MG ER TABLET PO SCH (20:12)
[2021-11-28] MEDS: QUEtiapine FUMARATE 100 MG TABLET PO SCH (08:01)
[2021-11-28] MEDS: FLUoxetine HCL 20 MG CAPSULE PO SCH (08:01)
[2021-11-28] MEDS ORDERED: QUET200T PO (13:05)
[2021-11-28 13:25] VITALS: BP 122/70
[2021-11-28] MEDS ORDERED: DIVA-80 PO (21:01)
[2021-11-28] MEDS ORDERED: QUET100T34 PO (21:01)
[2021-11-28] MEDS ORDERED: QUET200T30 PO (21:01)
[2021-11-28] MEDS ORDERED: PROZ20 PO (21:01)
== END 2021-11-28 14:15 | disposition home or self-care (01) | DRG 750 ==
LOC: B3A 11-05 00:02
PROVIDERS: ADMIT Psychiatry & Neurology Psychiatry; ATTEND Psychiatry & Neurology Psychiatry
DX: F25.0 Schizoaffective disorder, bipolar type (principal); M62.82 Rhabdomyolysis; R45.851 Suicidal ideations; F10.10 Alcohol abuse, uncomplicated; Z20.822 Contact with and (suspected) exposure to COVID-19; F15.10 Other stimulant abuse, uncomplicated; F41.9 Anxiety disorder, unspecified; I10 Essential (primary) hypertension; L03.119 Cellulitis of unspecified part of limb; Z59.00 Homelessness unspecified; Z79.899 Other long term (current) drug therapy
CPT/HCPCS: 81001; 87081